=== PATIENT | male | born 1960 | race Two or more races ===

== ENCOUNTER 2022-03-03 15:46 | Emergency (ER) | payer SELFPAY ==
[~2022-03-03] VITALS: Ht 162.6 cm; Wt 65.3 kg
[2022-03-03 16:10] VITALS: BP 119/70
[2022-03-03 16:43] LABS: Basophils # (auto) 0 10 ^3/uL (0-0.2); Mean Corpuscular Hgb Conc. 34.3 g/dL (32.0-36.0); Mean Corpuscular Volume 107.5 fL (80.0-100.0); Monocytes # (auto) 0.4 10 ^3/uL (0-1.3); Neutrophils # (auto) 1.9 10 ^3/uL (1.6-8.6); Nucleated Red Blood Cells % 0.2 %
[2022-03-03 16:45] LABS: Basophils % (auto) 0.9 % (0.0-2.0); Eosinophils # (auto) 0.1 10 ^3/uL (0-0.8); Eosinophils % (auto) 1.6 % (0.0-7.0); Hematocrit 41.8 % (41.0-53.0); Hemoglobin 14.4 g/dL (13.5-17.5); Lymphocytes # (auto) 1.1 10 ^3/uL (0.4-5.4); Lymphocytes % (auto) 32.2 % (10.0-50.0); Mean Corpuscular Hemoglobin 36.9 pg (28.0-32.0); Monocytes % (auto) 11.4 % (0.0-12.0); Neutrophils % (auto) 53.9 % (37.0-80.0); Red Blood Cells 3.89 10^6/uL (4.5-5.90); Red Cell Distribution Width 15.1 % (11.8-14.3); White Blood Cell 3.4 10^3/uL (4.4-10.8)
[2022-03-03 17:00] LABS: Albumin 2.4 g/dL (3.4-5.0); BUN/Creatinine Ratio 9.2; Calcium 7.9 mg/dL (8.5-10.1); Potassium 3.5 mmol/L (3.5-5.1)
[2022-03-03 17:03] LABS: Bilirubin, Total 1.7 mg/dL (0.2-1.0); Total Protein 7.5 g/dL (6.4-8.2)
[2022-03-03 18:45] LABS: Urine Bacteria NONE SEEN /hpf (None Seen); Urine Blood Negative /uL (Negative); Urine Hyaline Cast FEW /lpf (0 - 2); Urine WBC 1 /hpf (0 - 3)
[2022-03-03 19:01] LABS: Amphetamine Screen, Urine NEGATIVE (NEGATIVE); Barbiturate Scree,Urine NEGATIVE (NEGATIVE); Benzodiazephine Screen, Urine NEGATIVE (NEGATIVE); Cannabinoid Screen, Urine NEGATIVE (NEGATIVE); Cocaine Screen, Urine POSITIVE (NEGATIVE); Opiate Scree,Urine NEGATIVE (NEGATIVE); Phencyclidine Screen, Urine NEGATIVE (NEGATIVE)
== END 2022-03-03 22:15 | disposition left against medical advice (07) ==
LOC: EDBD 15:46 → ER 15:46
DX: F10.129 Alcohol abuse with intoxication, unspecified (principal); F17.210 Nicotine dependence, cigarettes, uncomplicated; Y90.8 Blood alcohol level of 240 mg/100 ml or more
CPT/HCPCS: 36415; 80053; 80307; 80320; 81001; 85025

== ENCOUNTER 2024-03-13 06:23 | Emergency (ER) | payer MEDICAID, OTHER ==
[~2024-03-13] VITALS: Ht 170.2 cm; Wt 75.0 kg
[2024-03-13 06:48] LABS: Basophils # (auto) 0.1 10 ^3/uL (0-0.2); Basophils % (auto) 0.8 % (0.0-2.0); Eosinophils # (auto) 0.1 10 ^3/uL (0-0.8); Eosinophils % (auto) 0.9 % (0.0-7.0); Hematocrit 35.2 % (41.0-53.0); Lymphocytes # (auto) 1.3 10 ^3/uL (0.4-5.4); Lymphocytes % (auto) 17.4 % (10.0-50.0); Mean Corpuscular Hemoglobin 37.6 pg (28.0-32.0); Mean Corpuscular Hgb Conc. 34.2 g/dL (32.0-36.0); Mean Corpuscular Volume 109.7 fL (80.0-100.0); Monocytes # (auto) 0.7 10 ^3/uL (0-1.3); Monocytes % (auto) 8.8 % (0.0-12.0); Neutrophils # (auto) 5.4 10 ^3/uL (1.6-8.6); Neutrophils % (auto) 72.1 % (37.0-80.0); Nucleated Red Blood Cells % 0.1 %; Red Blood Cells 3.21 10^6/uL (4.5-5.90); Red Cell Distribution Width 16.8 % (11.8-14.3); White Blood Cell 7.4 10^3/uL (4.4-10.8)
[2024-03-13 06:57] VITALS: RESP 13; O2SAT 95
[2024-03-13 07:07] LABS: Chloride 104 mmol/L (98-107); Potassium 3.5 mmol/L (3.5-5.1); Sodium 133 mmol/L (136-145)
[2024-03-13 07:08] LABS: Anion Gap 3 (5-15); Carbon Dioxide 26 mmol/L (20-30)
[2024-03-13 07:09] LABS: Calcium 8.1 mg/dL (8.7-10.4)
[2024-03-13 07:13] LABS: BUN/Creatinine Ratio 11.3 (10.0-20.0); Blood Urea Nitrogen 7 mg/dL (9-23); Glucose 301 mg/dL (74-106)
[2024-03-13] MEDS: SODIUM CHLORIDE 0.9% 1,000 ML IV ONE (07:34)
[2024-03-13 12:30] VITALS: BP 152/84; PULSE 90; RESP 15; TEMP 98.4; O2SAT 96
== END 2024-03-13 12:45 | disposition left against medical advice (07) ==
LOC: ER 06:23 → EDBD 06:23 → ER 12:45
DX: I10 Essential (primary) hypertension (principal); E11.65 Type 2 diabetes mellitus with hyperglycemia; G93.41 Metabolic encephalopathy; F17.210 Nicotine dependence, cigarettes, uncomplicated; F10.90 Alcohol use, unspecified, uncomplicated; F15.90 Other stimulant use, unspecified, uncomplicated; Y90.0 Blood alcohol level of less than 20 mg/100 ml
CPT/HCPCS: 36415; 70450; 80048; 85025; 93005; 96360; 99285; J7030